=== PATIENT | male | born 1975 | race Caucasian/White ===

== ENCOUNTER 2021-01-22 03:48 | Emergency (ER) | payer MEDICAID ==
[~2021-01-22] VITALS: Ht 190.5 cm; Wt 85.0 kg
--- NOTE | 2021-01-22 04:10 | NUR ---
pt bib [facility] for unspecific psychosis and medical clearance for [facility]. pt admits to using meth on Saturday. pt's belongings removed, bagged up and placed in locker. pt in gown, resting on gurney, and room is secured.
[2021-01-22 04:30] LABS: BASOPHILS % (AUTO) 1 % (0-1); EOSINOPHILS % (AUTO) 2 % (1-7); LYMPHOCYTES % (AUTO) 37 % (22-44); MEAN CORPUSCULAR HEMOGLOBIN 32.8 pg (27.5-34.5); MEAN CORPUSCULAR HGB CONC 34.6 g/dL (33.2-36.2); MONOCYTES % (AUTO) 11 % (2-9); NEUTROPHILS % (AUTO) 48 % (42-75); PLATELET COUNT 271 x10^3/uL (130-400); RED BLOOD COUNT 4.44 x10^6/uL (4.38-5.82); RED CELL DISTRIBUTION WIDTH 13.5 % (9.4-14.8)
[2021-01-22 04:44] LABS: ALBUMIN 3.7 g/dL (3.4-5.0); ANION GAP 1 mmol/L (5-15); CALCIUM 8.8 mg/dL (8.5-10.1); CHLORIDE 104 mmol/L (98-107); SALICYLATE LEVEL 4.5 mg/dL (2.8-20.0)
[2021-01-22 04:45] LABS: CREATININE 0.85 mg/dL (0.7-1.3)
[2021-01-22 04:51] LABS: AMPHETAMINE SCREEN, URINE Positive (Negative); BARBITURATE SCREEN, URINE Negative (Negative); BENZODIAZEPINE SCREEN, URINE Negative (Negative); CANNABINOID SCREEN, URINE Positive (Negative); COCAINE SCREEN, URINE Negative (Negative); METHADONE SCREEN, URINE Negative (Negative); OPIATE SCREEN, URINE Negative (Negative)
--- NOTE | 2021-01-22 05:02 | NUR ---
pt moved to Room 1 to share sitter. report given to XIMENA Mason
--- NOTE | 2021-01-22 05:08 | NUR ---
RECEIVED REPORT FROM USAMA BUENO. PT CONDITION UNCHANGED FROM BEFORE. NADN. A&OX4. BREATHING EVEN AND UNLABORED. SAFETY PRECAUTIONS PUT INTO PLACE. GARAGE DOORS SECURED. PERSONAL BELONGINGS IN LOCKER. TM.
[2021-01-22] MEDS ORDERED: LORazepam 1MG TABLET PO PRN (05:30)
--- NOTE | 2021-01-22 05:30 | NUR ---
ordered pt breakfast tray. pt ambulated to bathroom and back to room with steady gait. pt given blankets and resting in bed. nadn. hayes
--- NOTE | 2021-01-22 05:31 | NUR ---
CALLED [facility] AND SPOKE W/ ROSARIO WHO STATED PT HAS A BED ONCE MEDICALLY CLEAR. Addendum: 01/22/21 at 0532 by TRANG [employer] AND MD CABELLO
[2021-01-22] MEDS ORDERED: LORazepam 1MG TABLET ONE (05:39)
--- NOTE | 2021-01-22 05:44 | NUR ---
PT REFUSED TOTAKE ATIVAN. PT STATES HE WANTS TO ABSORB WHAT IS GOING ON RIGHT NOW AND TO PUT IT ON THE BEDSIDE TABLE WHEN HE IS READY. THIS NURSE RETURNED MEDICATION BACK TO [facility].
--- NOTE | 2021-01-22 06:11 | NUR ---
ROSARIO [facility] NOTIFIED OF [facility] 07
--- NOTE | 2021-01-22 06:56 | NUR ---
report given to Gemma BUENO for Shama BUENO
--- NOTE | 2021-01-22 07:03 | NUR ---
gave report to caesar david. transfer of care.
--- NOTE | 2021-01-22 08:11 | NUR ---
Pt sleeping, resps even and unlabored.
[2021-01-22 09:19] VITALS: BP 131/90
== END 2021-01-22 09:26 ==
LOC: ED 05:07
DX: F23 Brief psychotic disorder (principal); F12.10 Cannabis abuse, uncomplicated
CPT/HCPCS: 36415; 80048; 80299; 80307; 80320; 80329; 82040; 85025; 99285; G0480